=== PATIENT | female | born 1975 | race Caucasian/White ===

== ENCOUNTER 2018-02-16 00:42 | Inpatient (IN) | payer MEDICAID ==
[2018-02-16] VITALS (13 sets, daily range): BP systolic 117–155; BP diastolic 59–102
[~2018-02-16] VITALS: Ht 160 cm; Wt 90.9 kg
[~2018-02-16 00:42] MED LIST: DULO-31 PO; LORA1TAB PO; PER10325T PO; ROPI1TAB2 PO
[2018-02-16 02:23] LABS: BASOPHILS % (AUTO) 0.1 % (0-1); EOSINOPHILS # (AUTO) 0.2 X10'3 (0-0.9); HEMATOCRIT 23.6 % (35.0-45.0); LYMPHOCYTES # (AUTO) 1.5 X10'3 (1.1-4.8); LYMPHOCYTES % (AUTO) 16.9 % (21-51); MEAN CORPUSCULAR HEMOGLOBIN 20.3 PG (27.0-31.0); MEAN CORPUSCULAR HGB CONC 29.5 % (33.0-36.5); MEAN CORPUSCULAR VOLUME 68.8 FL (78-98); MEAN PLATELET VOLUME 7.6 FL (7.4-10.4); MONOCYTES # (AUTO) 0.5 X10'3 (0-0.9); MONOCYTES % (AUTO) 5.4 % (2-12); NEUTROPHILS # (AUTO) 6.8 X10'3 (1.8-7.7); NEUTROPHILS % (AUTO) 75.6 % (42-75); PLATELET COUNT 424 X10'3 (140-440); RED BLOOD COUNT 3.44 X10'6 (4.20-5.60); RED CELL DISTRIBUTION WIDTH 19.3 % (11.5-14.5); WHITE BLOOD COUNT 8.9 X10'3 (4.5-11.0)
[2018-02-16 02:28] LABS: ALANINE AMINOTRANSFERASE 27 U/L (12-78); ALBUMIN/GLOBULIN RATIO 0.7 (1.1-1.5); ALKALINE PHOSPHATASE 108 IU/L (46-116); ANION GAP 11 (8-16); ASPARTATE AMINO TRANSFERASE 15 U/L (10-37); BILIRUBIN,TOTAL 0.2 MG/DL (0.1-1.0); BLOOD UREA NITROGEN 9 MG/DL (7-18); BUN/CREATININE RATIO 14.1 (6.6-38.0); CALCIUM 8.6 MG/DL (8.5-10.1); CHLORIDE 106 MMOL/L (99-107); CREATININE 0.64 MG/DL (0.40-0.90); GLUCOSE 107 MG/DL (70-104); POTASSIUM 3.3 MMOL/L (3.5-5.1); SODIUM 141 MMOL/L (135-145); TOTAL CARBON DIOXIDE 23.8 MMOL/L (24-32); TOTAL PROTEIN 7.2 G/DL (6.4-8.2); eGFR > 90 ML/MIN
[2018-02-16] MEDS ORDERED: levetiracetam inj 1,000 MG in normal saline 100ml IV soln 90 ML IV ONE (03:43)
[2018-02-16] MEDS ORDERED: levetiracetam 100mg/ml inj IV ONE (03:52)
[2018-02-16] MEDS ORDERED: normal saline 100ml IV soln 100 ML ONE (03:53)
[2018-02-16] MEDS ORDERED: ondansetron/PF 4mg/2ml inj IV ONE (04:00)
[2018-02-16] MEDS: levetiracetam inj 1,000 MG in normal saline 100ml IV soln 90 ML IV SCH ×3 (04:05→07:03)
[2018-02-16 04:18] LABS: PLATELET ESTIMATE NORMAL
[2018-02-16 04:19] LABS: ANISOCYTOSIS 2+; MICROCYTOSIS 2+
[2018-02-16 04:20] LABS: ELLIPTOCYTES 1+; HYPOCHROMASIA 2+
[2018-02-16] MEDS ORDERED: morphine 4 MG/ML inj SYRINge IV ONE (04:20)
[2018-02-16] MEDS ORDERED: ketorolac trometh. 30mg/ml inj. IV ONE (07:15)
[2018-02-16] MEDS ORDERED: levetiracetam inj 1,000 MG in normal saline 100ml IV soln 90 ML IV SCH (08:00)
[2018-02-16] MEDS ORDERED: MORPHINE 2MG in 2ml NS syringe IV ONE (08:00)
[2018-02-16] MEDS ORDERED: potassium Cl 20 mEq SR tablet PO PRN (08:10)
[2018-02-16] MEDS ORDERED: magnesium Cl slow-release 64mg tablet PO PRN (08:10)
[2018-02-16] MEDS ORDERED: magnesium hydroxide 30ml (MOM) UD suspension PO PRN (08:10)
[2018-02-16] MEDS ORDERED: potassium Cl 40MEQ/NS 500ml 500 ML IV PRN ×2 (08:10)
[2018-02-16] MEDS ORDERED: mag hydrox/Alum hydrox/simeth 30ml oral suspension PO PRN (08:10)
[2018-02-16] MEDS ORDERED: magnesium 1gm/100ml D5W IVPB 100 ML IV PRN (08:10)
[2018-02-16] MEDS ORDERED: acetaminophen 325mg tablet PO PRN (08:10)
[2018-02-16] MEDS ORDERED: magnesium 4gm in 100ml NS 100 ML IV PRN (08:10)
[2018-02-16 09:16] LABS: OCCULT BLOOD STOOL NEGATIVE (Neg)
[2018-02-16] MEDS: normal saline 1000ml 1,000 ML IV SCH ×2 (09:40→22:00)
[2018-02-16] MEDS: levetiracetam 250mg tablet PO SCH ×2 (09:44→19:46)
[2018-02-16] MEDS: ondansetron/PF 4mg/2ml inj IV PRN ×2 (09:44→19:24)
[2018-02-16] MEDS: duloxetine 30mg CAPSULE.DR PO SCH (09:44)
[2018-02-16] MEDS ORDERED: oxyCODONE/APAP 10/325mg tablet PO PRN ×2 (10:55→13:00)
[2018-02-16 13:47] LABS: BASOPHILS % (AUTO) 0.1 % (0-1); EOSINOPHILS # (AUTO) 0.2 X10'3 (0-0.9); EOSINOPHILS % (AUTO) 2.6 % (0-6); HEMATOCRIT 28.4 % (35.0-45.0); HEMOGLOBIN 8.7 g/dl (12.0-16.0); LYMPHOCYTES # (AUTO) 2.2 X10'3 (1.1-4.8); LYMPHOCYTES % (AUTO) 25.3 % (21-51); MEAN CORPUSCULAR HEMOGLOBIN 22.2 PG (27.0-31.0); MEAN CORPUSCULAR HGB CONC 30.6 % (33.0-36.5); MEAN CORPUSCULAR VOLUME 72.6 FL (78-98); MEAN PLATELET VOLUME 7.3 FL (7.4-10.4); MONOCYTES # (AUTO) 0.4 X10'3 (0-0.9); MONOCYTES % (AUTO) 4.4 % (2-12); NEUTROPHILS # (AUTO) 5.8 X10'3 (1.8-7.7); NEUTROPHILS % (AUTO) 67.6 % (42-75); PLATELET COUNT 347 X10'3 (140-440); RED BLOOD COUNT 3.92 X10'6 (4.20-5.60); RED CELL DISTRIBUTION WIDTH 20.5 % (11.5-14.5); WHITE BLOOD COUNT 8.6 X10'3 (4.5-11.0)
[2018-02-16 14:09] LABS: ANISOCYTOSIS 2+; ELLIPTOCYTES 1+; HYPOCHROMASIA 1+; MICROCYTOSIS 1+; PLATELET ESTIMATE NORMAL; POLYCHROMASIA 1+
[2018-02-16] MEDS: oxyCODONE/APAP 10/325mg tablet PO PRN ×2 (14:39→19:51)
[2018-02-16] MEDS: potassium Cl 20 mEq SR tablet PO PRN (16:03)
[2018-02-16] MEDS ORDERED: ROPINIRole 1mg tablet PO SCH (21:00)
[2018-02-17] MEDS: potassium Cl 20 mEq SR tablet PO PRN (00:03)
[2018-02-17] MEDS: oxyCODONE/APAP 10/325mg tablet PO PRN ×4 (00:03→13:48)
[2018-02-17] MEDS: normal saline 1000ml 1,000 ML IV SCH ×2 (04:06→14:06)
[2018-02-17 06:00] VITALS: BP 155/91
[2018-02-17 06:13] LABS: BASOPHILS % (AUTO) 0.2 % (0-1); EOSINOPHILS # (AUTO) 0.3 X10'3 (0-0.9); EOSINOPHILS % (AUTO) 5.2 % (0-6); HEMATOCRIT 26.1 % (35.0-45.0); LYMPHOCYTES # (AUTO) 1.8 X10'3 (1.1-4.8); LYMPHOCYTES % (AUTO) 27.5 % (21-51); MEAN CORPUSCULAR HEMOGLOBIN 22.2 PG (27.0-31.0); MEAN CORPUSCULAR HGB CONC 30.7 % (33.0-36.5); MEAN CORPUSCULAR VOLUME 72.3 FL (78-98); MEAN PLATELET VOLUME 7.4 FL (7.4-10.4); MONOCYTES # (AUTO) 0.3 X10'3 (0-0.9); NEUTROPHILS % (AUTO) 62.1 % (42-75); PLATELET COUNT 333 X10'3 (140-440); RED BLOOD COUNT 3.61 X10'6 (4.20-5.60); RED CELL DISTRIBUTION WIDTH 20.3 % (11.5-14.5); WHITE BLOOD COUNT 6.5 X10'3 (4.5-11.0)
[2018-02-17 06:30] LABS: ALANINE AMINOTRANSFERASE 29 U/L (12-78); ALBUMIN 2.7 G/DL (3.4-5.0); ALBUMIN/GLOBULIN RATIO 0.7 (1.1-1.5); ALKALINE PHOSPHATASE 99 IU/L (46-116); ANION GAP 7 (8-16); ASPARTATE AMINO TRANSFERASE 21 U/L (10-37); BILIRUBIN,TOTAL 0.4 MG/DL (0.1-1.0); BLOOD UREA NITROGEN 7 MG/DL (7-18); BUN/CREATININE RATIO 10.1 (6.6-38.0); CHLORIDE 107 MMOL/L (99-107); CREATININE 0.69 MG/DL (0.40-0.90); GLUCOSE 85 MG/DL (70-104); MAGNESIUM 1.7 MG/DL (1.5-2.4); POTASSIUM 3.7 MMOL/L (3.5-5.1); SODIUM 139 MMOL/L (135-145); TOTAL CARBON DIOXIDE 24.9 MMOL/L (24-32); TOTAL PROTEIN 6.7 G/DL (6.4-8.2); eGFR > 90 ML/MIN
[2018-02-17 07:33] LABS: ANISOCYTOSIS 2+; MICROCYTOSIS 2+; PLATELET ESTIMATE NORMAL; POIKILOCYTOSIS FEW; POLYCHROMASIA 1+
[2018-02-17 08:00] VITALS: BP 155/91
[2018-02-17] MEDS ORDERED: K and/or MAG REPLACEMENT MC SCH (08:00)
[2018-02-17] MEDS: duloxetine 30mg CAPSULE.DR PO SCH (08:08)
[2018-02-17] MEDS: levetiracetam 250mg tablet PO SCH (08:08)
[2018-02-17 09:31] LABS: CLARITY,URINE CLEAR (Clear); COLOR,URINE YELLOW (Yellow); GLUCOSE, URINE NEGATIVE (Neg); KETONES,URINE NEGATIVE (Neg); LEUKOCYTE ESTERASE ,URINE NEGATIVE (Neg); NITRITES, URINE NEGATIVE (Neg); OCCULT BLOOD,URINE SMALL (Neg); PROTEIN,URINE NEGATIVE (Neg); UROBILINOGEN,URINE 0.2 E.U/dL (0.2-1.0)
[2018-02-17 09:35] LABS: UA COLLECTION TYPE CLN CATCH MIDSTREAM
[2018-02-17 09:36] LABS: BACTERIA,URINE NONE SEEN /HPF (Neg); MUCUS STRANDS NONE SEEN /LPF (Neg); RBC,URINE 0-2 /HPF (0-2); SQUAMOUS EPITHELIAL CELL,UR FEW /LPF (FEW); WBC,URINE NONE SEEN /HPF (0-4)
[2018-02-17 09:48] LABS: BASOPHILS % (AUTO) 0.1 % (0-1); EOSINOPHILS # (AUTO) 0.4 X10'3 (0-0.9); EOSINOPHILS % (AUTO) 5.1 % (0-6); HEMATOCRIT 27.8 % (35.0-45.0); HEMOGLOBIN 8.5 g/dl (12.0-16.0); LYMPHOCYTES # (AUTO) 1.4 X10'3 (1.1-4.8); LYMPHOCYTES % (AUTO) 18.4 % (21-51); MEAN CORPUSCULAR HEMOGLOBIN 22.4 PG (27.0-31.0); MEAN CORPUSCULAR HGB CONC 30.7 % (33.0-36.5); MEAN CORPUSCULAR VOLUME 72.9 FL (78-98); MEAN PLATELET VOLUME 6.9 FL (7.4-10.4); MONOCYTES # (AUTO) 0.3 X10'3 (0-0.9); MONOCYTES % (AUTO) 4.5 % (2-12); NEUTROPHILS # (AUTO) 5.6 X10'3 (1.8-7.7); NEUTROPHILS % (AUTO) 71.9 % (42-75); PLATELET COUNT 363 X10'3 (140-440); RED BLOOD COUNT 3.81 X10'6 (4.20-5.60); RED CELL DISTRIBUTION WIDTH 20.4 % (11.5-14.5); WHITE BLOOD COUNT 7.8 X10'3 (4.5-11.0)
[2018-02-17 10:00] VITALS: BP 121/70
[2018-02-17 12:02] LABS: BASOPHILS % (AUTO) 0.2 % (0-1); EOSINOPHILS # (AUTO) 0.4 X10'3 (0-0.9); EOSINOPHILS % (AUTO) 5.2 % (0-6); HEMATOCRIT 27.6 % (35.0-45.0); HEMOGLOBIN 8.5 g/dl (12.0-16.0); LYMPHOCYTES # (AUTO) 1.6 X10'3 (1.1-4.8); LYMPHOCYTES % (AUTO) 21.4 % (21-51); MEAN CORPUSCULAR HEMOGLOBIN 22.4 PG (27.0-31.0); MEAN CORPUSCULAR HGB CONC 30.7 % (33.0-36.5); MEAN CORPUSCULAR VOLUME 72.8 FL (78-98); MEAN PLATELET VOLUME 7.6 FL (7.4-10.4); MONOCYTES # (AUTO) 0.4 X10'3 (0-0.9); NEUTROPHILS # (AUTO) 5.3 X10'3 (1.8-7.7); NEUTROPHILS % (AUTO) 68.2 % (42-75); PLATELET COUNT 346 X10'3 (140-440); RED CELL DISTRIBUTION WIDTH 21.2 % (11.5-14.5); WHITE BLOOD COUNT 7.7 X10'3 (4.5-11.0)
[2018-02-17] MEDS ORDERED: LEVE250T PO (12:25)
== END 2018-02-17 17:30 | disposition home or self-care (01) | DRG 53 ==
LOC: ER 00:42 → ED HOLD 08:06 → ORTHO 4S 09:08
PROVIDERS: ADMIT Internal Medicine; ATTEND Internal Medicine
PROC: 4A00X4Z Measurement of Central Nervous Electrical Activity, External Approach (ICD-10-PCS; principal; 2018-02-16)
PROC: 30233N1 Transfusion of Nonautologous Red Blood Cells into Peripheral Vein, Percutaneous Approach (ICD-10-PCS; 2018-02-16)
DX: G40.909 Epilepsy, unspecified, not intractable, without status epilepticus (principal); D64.9 Anemia, unspecified; G89.29 Other chronic pain; J45.909 Unspecified asthma, uncomplicated; N92.0 Excessive and frequent menstruation with regular cycle; Z79.899 Other long term (current) drug therapy
CPT/HCPCS: 36415; 70450; 80053; 81001; 82272; 83735; 84132; 85025; 86885; 86900; 86901; 86920; 95816; 96374; 96375; 97162; 97530; 99285; J1885; J1953; J2270; J2405; J7030; P9016

== ENCOUNTER 2018-03-23 18:33 | Emergency (ER) | payer MEDICAID ==
[~2018-03-23] VITALS: Ht 160 cm; Wt 81.8 kg
[~2018-03-23 18:33] MED LIST changes: +LEVE250T PO; -LORA1TAB PO
[2018-03-23] MEDS ORDERED: normal saline 1000ML IV soln IVB ONE (20:05)
[2018-03-23] MEDS ORDERED: morphine 4 MG/ML inj SYRINge IV ONE (20:05)
[2018-03-23] MEDS ORDERED: ondansetron/PF 4mg/2ml inj IV ONE (20:05)
[2018-03-23 21:09] LABS: BASOPHILS % (AUTO) 0.3 % (0-1); EOSINOPHILS # (AUTO) 0.3 X10'3 (0-0.9); EOSINOPHILS % (AUTO) 3.8 % (0-6); HEMATOCRIT 22.3 % (35.0-45.0); LYMPHOCYTES % (AUTO) 12.3 % (21-51); MEAN CORPUSCULAR HEMOGLOBIN 21.7 PG (27.0-31.0); MEAN CORPUSCULAR HGB CONC 30.6 % (33.0-36.5); MEAN PLATELET VOLUME 6.7 FL (7.4-10.4); MONOCYTES # (AUTO) 0.3 X10'3 (0-0.9); MONOCYTES % (AUTO) 3.3 % (2-12); NEUTROPHILS # (AUTO) 6.8 X10'3 (1.8-7.7); NEUTROPHILS % (AUTO) 80.3 % (42-75); PLATELET COUNT 466 X10'3 (140-440); RED BLOOD COUNT 3.14 X10'6 (4.20-5.60); RED CELL DISTRIBUTION WIDTH 22.6 % (11.5-14.5); WHITE BLOOD COUNT 8.5 X10'3 (4.5-11.0)
[2018-03-23 21:14] LABS: HEMOGLOBIN 6.8 g/dl (12.0-16.0)
[2018-03-23 21:38] LABS: ALANINE AMINOTRANSFERASE 39 U/L (12-78); ALBUMIN 2.9 G/DL (3.4-5.0); ALBUMIN/GLOBULIN RATIO 0.6 (1.1-1.5); ALKALINE PHOSPHATASE 146 IU/L (46-116); ANION GAP 10 (8-16); ASPARTATE AMINO TRANSFERASE 15 U/L (10-37); BILIRUBIN,TOTAL 0.2 MG/DL (0.1-1.0); BLOOD UREA NITROGEN 10 MG/DL (7-18); BUN/CREATININE RATIO 14.5 (6.6-38.0); CALCIUM 8.3 MG/DL (8.5-10.1); CHLORIDE 101 MMOL/L (99-107); CREATININE 0.69 MG/DL (0.40-0.90); GLUCOSE 104 MG/DL (70-104); POTASSIUM 3.6 MMOL/L (3.5-5.1); SODIUM 137 MMOL/L (135-145); TOTAL CARBON DIOXIDE 25.8 MMOL/L (24-32); TOTAL PROTEIN 7.5 G/DL (6.4-8.2); eGFR > 90 ML/MIN
[2018-03-23 23:10] VITALS: BP 120/77
[2018-03-23 23:30] VITALS: BP 121/61
[2018-03-23 23:45] LABS: ANISOCYTOSIS 3+; HYPOCHROMASIA 1+; PLATELET ESTIMATE INCREASED; POLYCHROMASIA 2+
[2018-03-23 23:46] LABS: ELLIPTOCYTES FEW; STOMATOCYTES FEW
[2018-03-24 00:11] VITALS: BP 118/77
[2018-03-24] MEDS ORDERED: morphine 4 MG/ML inj SYRINge IV ONE (00:25)
[2018-03-24 01:01] VITALS: BP 113/69
[2018-03-24 01:16] VITALS: BP 132/88
[2018-03-24 02:08] VITALS: BP 134/90
[2018-03-24 02:45] VITALS: BP 135/75
== END 2018-03-24 02:57 | disposition home or self-care (01) ==
LOC: ER 18:36
DX: D64.9 Anemia, unspecified (principal); G89.29 Other chronic pain; R10.9 Unspecified abdominal pain; J45.909 Unspecified asthma, uncomplicated; Z79.899 Other long term (current) drug therapy
CPT/HCPCS: 36415; 36430; 80053; 85025; 86885; 86900; 86901; 86920; 93005; 96361; 96374; 96375; 96376; 99285; J2270; J2405; J7030; P9016

== ENCOUNTER 2024-08-20 09:23 | Outpatient (CLI) | payer MEDICAID ==
[~2024-08-20 09:23] MED LIST changes: +KEP500T PO
== END 2024-08-20 23:59 | disposition home or self-care (01) ==
LOC: MRI02 09:23
PROVIDERS: ATTEND Nurse Practitioner Family
DX: G31.89 Other specified degenerative diseases of nervous system (principal); R25.1 Tremor, unspecified; R56.9 Unspecified convulsions; Q04.8 Other specified congenital malformations of brain
CPT/HCPCS: 70551